=== PATIENT | female | born 1960 | race African-American/Black ===

== ENCOUNTER 2017-04-03 12:55 | Emergency (ER) | payer BC ==
[~2017-04-03] VITALS: Ht 167.6 cm; Wt 68.0 kg
--- NOTE | 2017-04-03 12:55 | NUR ---
Patient was BIBA and taken to bed 11 via gurney per EMS.
[2017-04-03 12:59] VITALS: BP 116/83
--- NOTE | 2017-04-03 13:00 | NUR ---
56/F BIBA FOR EVALUATION OF WITNESSED SYNCOPAL EPISODE. PT STATES SHE WAS AMBULATING AT WORK AND HIT HER LEFT KNEE ON THE SIDE OF A WOODEN TABLE, CAUSING EXCRUCIATING PAIN AND SHE FAINTED. PT DENIES ANY PAIN OR DISCOMFORT AT THIS TIME. HX HTN.AAOX4. HR EVEN AND REGULAR; PT DENIES ANY FEVER, CP, SOB, OR COUGH AT THIS TIME; PATIENT STATES PAIN OF 0/10 AT THIS TIME; PATIENT POSITIONED FOR COMFORT; HOB ELEVATED; BEDRAILS UP X2; BED DOWN. ER MD MADE AWARE OF PT STATUS.
--- NOTE | 2017-04-03 13:19 | NUR ---
Patient being evaluated by DR HINOJOSA AT BEDSIDE.
[2017-04-03 13:34] VITALS: BP 120/60
--- NOTE | 2017-04-03 13:34 | NUR ---
IV removed, catheter intact and site benign. Applied folded 4x4 gauze and tape to stop bleeding.
--- NOTE | 2017-04-03 13:34 | NUR ---
Patient discharged with v/s stable. Written and verbal after care instructions given and explained. Patient verbalized understanding. Ambulatory with steady gait. All questions addressed prior to discharge. Advised to follow up with PMD.
== END 2017-04-03 13:34 | disposition home or self-care (01) ==
LOC: MED 12:55
DX: S80.02XA Contusion of left knee, initial encounter (principal); R55 Syncope and collapse; I10 Essential (primary) hypertension; Z90.710 Acquired absence of both cervix and uterus; W22.8XXA Striking against or struck by other objects, initial encounter; Y93.89 Activity, other specified; Y92.89 Other specified places as the place of occurrence of the external cause; Y99.8 Other external cause status
CPT/HCPCS: 93005; 99283

== ENCOUNTER 2018-05-20 13:55 | Emergency (ER) | payer BC ==
[~2018-05-20] VITALS: Ht 167.6 cm; Wt 73.5 kg
--- NOTE | 2018-05-20 13:55 | NUR ---
PT SILVERIO DESAI, CURRENTLY AWAITING BED
[2018-05-20 13:56] VITALS: BP 125/81
--- NOTE | 2018-05-20 14:03 | NUR ---
PT TAKEN TO BED 6 BY EMS CREW
[2018-05-20] MEDS ORDERED: CALER120 PO (14:19)
--- NOTE | 2018-05-20 14:20 | NUR ---
AAO X4 57 YR F WITH C/O WITNESS SYNCOPAL EPISODE AT WORK. PER PATIENT,WHILE IN THE BR, PATIENT FELT WEAK/DIZZY. SHE MANAGED TO GO OUT,ASKED FOR HELP,LAY DOWN AND PASSED OUT. NO INJURY. DENIES INCONTINENCE,DENIES VOMITING. HX: HTN,HYSTERECTOMY. TAKING VERAPAMIL 240MG DAILY
--- NOTE | 2018-05-20 14:55 | NUR ---
APPLE JUICE PROVIDED TO AAO X4 PT WITH VSS, NO C/O PAIN AT THIS TIME. SPEAKING FULL SENTENCES, MOVING ALL EXTREMITY WITHOUT DIFFICULTY
[2018-05-20] MEDS ORDERED: NACL 0.9% 1,000 ML IV ONE (16:00)
[2018-05-20 16:25] LABS: BASOPHILS % (AUTO) 0.1 % (0.0-2.0); EOSINOPHILS % (AUTO) 0.4 % (0.0-4.0); HEMATOCRIT 43.6 % (36-48); HEMOGLOBIN 14.2 g/dL (12.0-16.0); LYMPHOCYTES # (AUTO) 1.1 K/uL (2.5-16.5); LYMPHOCYTES % (AUTO) 12.1 % (20.5-51.1); MEAN CORPUSCULAR HEMOGLOBIN 28 pg (27-31); MEAN CORPUSCULAR HGB CONC 33 g/dL (33-37); MEAN CORPUSCULAR VOLUME 86.4 fL (80-94); MONOCYTES # (AUTO) 0.3 K/uL (0.8-1.0); MONOCYTES % (AUTO) 3.6 % (1.7-9.3); NEUTROPHILS # (AUTO) 7.8 K/uL (1.8-7.7); NEUTROPHILS % (AUTO) 83.8 % (42.2-75.2); PLATELET COUNT (AUTO) 279 K/uL (140-450); RED BLOOD CELL COUNT(AUTO) 5.05 MIL/uL (4.20-5.40); RED CELL DISTRIBUTION WIDTH 14.7 % (11.6-13.7); WHITE BLOOD COUNT (AUTO) 9.3 K/uL (4.8-10.8)
[2018-05-20 16:36] LABS: ANION GAP 12.4 (8-16); CARBON DIOXIDE 28.4 mmol/L (21-32); CREATININE 0.9 mg/dL (0.6-1.3); POTASSIUM 3.8 mmol/L (3.5-5.1)
[2018-05-20 16:41] LABS: ALBUMIN 3.9 g/dL (3.4-5.0); TOTAL BILIRUBIN 0.3 mg/dL (0.0-1.0)
--- NOTE | 2018-05-20 17:26 | NUR ---
Patient discharged with v/s stable. Written and verbal after care instructions given and explained. Patient alert, oriented and verbalized understanding of instructions. Ambulatory with steady gait. All questions addressed prior to discharge. ID band removed. Patient advised to follow up with PMD. Rx of Lomotil given. Patient educated on indication of medication including possible reaction and side effects. Opportunity to ask questions provided and answered.
[2018-05-20 17:27] VITALS: BP 124/83
== END 2018-05-20 17:26 | disposition home or self-care (01) ==
LOC: MED 13:55
DX: R55 Syncope and collapse (principal); R19.7 Diarrhea, unspecified; I10 Essential (primary) hypertension; F41.9 Anxiety disorder, unspecified; Z79.899 Other long term (current) drug therapy; Z90.710 Acquired absence of both cervix and uterus
CPT/HCPCS: 36415; 80053; 82948; 84484; 85025; 93005; 96360; 99284; J7030